=== PATIENT | male | born 1985 | race Caucasian/White ===

== ENCOUNTER → 2020-05-23 | Emergency (ER) | payer OTHER ==
[~2020-05-23] VITALS: Ht 177.8 cm; Wt 99.8 kg
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
--- NOTE | 2020-05-23 15:15 | NUR ---
DR FLOREZ AT BEDSIDE FOR EVAL.
--- NOTE | 2020-05-23 16:39 | NUR ---
PT PROVIDED W. WOUND CARE.
[2020-05-23 17:20] VITALS: BP 151/71
--- NOTE | 2020-05-23 17:21 | NUR ---
Patient discharged to home in stable condition. Written and verbal after care instructions given. Patient verbalizes understanding of instruction.
== END | disposition home or self-care (01) ==
LOC: ER 14:25
DX: S00.83XA Contusion of other part of head, initial encounter (principal); W22.8XXA Striking against or struck by other objects, initial encounter; Y93.64 Activity, baseball; Y92.89 Other specified places as the place of occurrence of the external cause; Y99.8 Other external cause status